=== PATIENT | male | born 1960 | race Caucasian/White ===

== ENCOUNTER 2017-04-24 19:10 | Emergency (ER) | payer OTHER ==
[2017-04-24 19:14] VITALS: TEMP 98.4
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
[2017-04-24] MEDS ORDERED: OXYCODONE/APAP 5/325MG PREPACK#4 BTL TAKEHOME ONE (20:01)
[2017-04-24 21:07] VITALS: RESP 18
[2017-04-24 23:44] VITALS: BP 107/61; PULSE 71; O2SAT 93
[2017-04-24] MEDS ORDERED: IBUPROFEN 600 MG TAB PO ONE (23:54)
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
== END 2017-04-25 01:28 | disposition short-term general hospital (02) ==
LOC: UNDOADMIN 22:11
DX: S42.022A Displaced fracture of shaft of left clavicle, initial encounter for closed fracture (principal); S22.32XA Fracture of one rib, left side, initial encounter for closed fracture; S32.435A Nondisplaced fracture of anterior column [iliopubic] of left acetabulum, initial encounter for closed fracture; V18.0XXA Pedal cycle driver injured in noncollision transport accident in nontraffic accident, initial encounter; Y99.8 Other external cause status; Y93.55 Activity, bike riding